=== PATIENT | male | born 1965 | race Caucasian/White ===

== ENCOUNTER → 2018-11-26 | Day surgery (SDC) | payer BC ==
[2018-11-20 16:57] LABS: ANION GAP 17.3 mmol/L (8-16); BLOOD UREA NITROGEN 21 mg/dL (7-26); BUN/CREATININE RATIO 18 (6-25); CALCIUM 10.1 mg/dL (8.4-10.2); CARBON DIOXIDE 26 mmol/L (22-29); CHLORIDE 101 mmol/L (98-107); CREATININE, SERUM 1.17 mg/dL (0.72-1.25); EST GLOMERULAR FILTRATION RATE > 60 ML/MIN (60-); GLUCOSE 69 mg/dL (74-118); POTASSIUM 4.3 mmol/L (3.5-5.1); SODIUM 140 mmol/L (136-145)
[~2018-11-26] MED LIST: ATORVASTATIN CA20 MG PO; BUPIVACAINE 0.5%/EPI 30 ML SDV INJ ONE; CLINDAMYCIN PHOS 900MG/ 50ML 50 ML IV ONE; DEXAMETHASONE SOD PHOS INJ 4 MG/ML VIAL ONE; FENTANYL CITRATE/PF 100MCG/2 ML INJ ONE; LIDOCAINE HCL 2% LOCAL INJ 5 ML SDV VIAL INJ ONE; LISINOPRIL-HCT1 EAC2 PO; METFORMIN HCL500 MG PO; MIDAZOLAM HCL 2 MG/2 ML VIAL ONE; ONDANSETRON HCL INJ 2MG/ML 2ML 2 MG/ML VIAL ONE; PROPOFOL IV EMULSION 10 MG/ML 20 ML VIAL ONE; SEVOFLURANE INHAL SOLN 250 ML PEN BTL ONE; trulicity INJ
--- OUTSIDE RECORDS SUMMARY | 2018-11-26 07:36 | XMS REPORT | Summary of Care ---
Author Author [facility] - Health Organization [facility] - Health Address Unknown Phone Unavailable Care Team Providers Care Network Manager Name Role Phone Arlene Nelson MD PCP Reason for Referral * (Routine) Referred By Contact Referred To Contact Status Reason Specialty Diagnoses / Procedures Arlene Nelson MD [address] [address] New Request Patient is Orthopedic Diagnoses Established with a Surgery Knee pain, Specific Provider unspecified chronicity, unspecified laterality P rocedures CONSULT/REFERRAL ORTHOPAEDIC SURGERY Encounter Details Care Team Description Date Type Department Arlene Nelson MD [address] [address] Knee pain, unspecified chronicity, unspecified laterality (Primary Dx) 11/12/2018 Patient Secure [facility]-[address], [address] [id number] Allergies Comments Active Allergy Reactions Severity Noted Date Penicillins Itching, 09/06/2011 Swelling documented as of this encounter (statuses as of 11/12/2018) Medications End Date Status Medication Sig Dispensed Refills Start Date Active Blood-Glucose Meter daily. Dx 1 Each 0 (GLUCOCOM BLOOD GLUCOSE) E11.9 6 KitIndications: Diabetes mellitus type II, controlled Active ONE TOUCH DELICA 33 gauge 0 Misc 6 Active aspirin 81 mg chewable Take 1 tablet 0 tabletIndications: by mouth 7 Essential hypertension, daily. benign, Type 2 diabetes mellitus without complication, without long-term current use of insulin, Hyperlipidemia, unspecified hyperlipidemia type Active ibuprofen 200 mg tablet Take 200 mg 0 by mouth every 6 (six) hours as needed. Active lisinopril-hydrochlorothi Take 1 tablet 30 tablet 11 azide 10-12.5 mg per by mouth 8 tabletIndications: daily. Essential hypertension, benign Active atorvastatin 20 mg TAKE 1 TABLET 30 tablet 11 tabletIndications: BY MOUTH 8 Hyperlipidemia, DAILY. unspecified hyperlipidemia type Active metformin ER 500 mg 24 hr TAKE 2 60 tablet tabletIndications: TABLETS BY 8 Uncontrolled type 2 MOUTH DAILY diabetes mellitus without WITH complication, without BREAKFAST. long-term current use of insulin Active blood sugar diagnostic 1 STRIP 100 Strip (ONETOUCH ULTRA TEST) DAILY. DX 8 stripIndications: E11.9 Uncontrolled type 2 diabetes mellitus without complication, without long-term current use of insulin Active dulaglutide (TRULICITY) inject 1.5 mg 4 Syringe 11 1.5 mg/0.5 mL under the 8 PnIjIndications: skin weekly. Controlled type 2 diabetes mellitus without complication, without long-term current use of insulin documented as of this encounter (statuses as of 11/12/2018) Active Problems Patient Care Coordination Note Hypertension (High Blood Pressure) Plan of Care My Hypertension Goals are the following: Strive for a normal blood pressure of less than 140/90 Cholesterol- LDL ( Bad cholesterol )- less than 130 (if I have diabetes and heart disease goal is less than 70) Total Cholesterol- less than 200 Lose weight if overweight or obese and follow the Weight Loss Care Plan Stop smoking and avoid second hand smoke My Hypertension Care Plan includes the following: Check and record blood pressure at least once a week and write results on blood pressure log Exercise at least 30 minutes a day 5 days a week. 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 If I do not have a [employer] account, I will discuss this with my healthcare team Problem Noted Date Benign neoplasm of sigmoid colon 08/09/2017 Overview: Added automatically from request for surgery [id number] Uncontrolled type 2 diabetes mellitus without complication, without 11/06/2016 long-term current use of insulin Vitamin D deficiency 10/24/2015 Diabetes mellitus, type II 02/22/2015 Environmental allergies 09/06/2011 Essential hypertension, benign Hyperlipidemia BALDEMAR (obstructive sleep apnea) documented as of this encounter (statuses as of 11/12/2018) Resolved Problems Problem Noted Date Resolved Date Breast pain in male 11/10/2015 11/06/2016 Current smoker 09/06/2011 11/06/2013 Overview: ICD10 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 documented as of this encounter (statuses as of 11/12/2018) Immunizations Name Administration Dates Next Due Influenza Virus Vaccine 01/23/2018, 02/20/2012 Influenza Virus Vaccine 03/13/2013 Nasal Influenza Virus Vaccine 03/01/2017, 03/01/2015 Quad IM 3+ YRS Influenza Virus Vaccine 01/13/2016 Quad IM Multi-dose 6+ MO Tdap 02/21/2018 documented as of this encounter Social History Date Tobacco Use Types Packs/Day Years Used 03/25/1995 - 10/18/2013 Former Smoker Cigarettes 1 18 Smokeless Tobacco: Never Used Drinks/Week oz/Week Comments Alcohol Use No Sex Assigned at Date Recorded Not on file Industry Job Start Date Occupation Not on file Not on file Not on file Travel End Travel History Travel Start No recent travel history available. documented as of this encounter Last Filed Vital Signs Not on filedocumented in this encounter Plan of Treatment Care Team Description Date Type Specialty Arlene Nelson MD [address] [id number] 01/02/2019 Office Visit Family Medicine Health Maintenance Due Date Last Done Comments PNEUMOCOCCAL 0-64 YEARS 1971 COMBINED SERIES (1 of 1 - PPSV23) Zoster Recombinant 2013 Vaccine (SHINGRIX) (1 of 2) EYE EXAM 07/05/2018 07/05/2017, 03/22/2017, 03/06/2016, Additional history exists FOOT EXAM 09/27/2018 09/27/2017, 11/06/2016, 11/06/2016, Additional history exists URINE MICROALBUMIN 09/27/2018 09/27/2017, 11/06/2016, 10/28/2015 INFLUENZA VACCINE (#1) 2018 01/23/2018, 03/01/2017, 01/13/2016, Additional history exists HgA1C 12/27/2018 06/27/2018, 02/21/2018, 09/27/2017, Additional history exists CREATININE (SERUM) 06/28/2019 06/27/2018, 07/05/2017, 03/01/2017, Additional history exists LDL-C 06/28/2019 06/27/2018, 07/05/2017, 06/23/2016, Additional history exists COLONOSCOPY 12/24/2020 12/24/2017, 12/24/2017, 08/08/2017 DTaP,Tdap,and Td Vaccines 02/22/2028 02/21/2018 (2 - Td) HEPATITIS C (HCV) SCREEN Completed 06/28/2016 LUNG CANCER SCREEN: Discontinued Recommended for age 55-80 with 30 + pack year history documented as of this encounter Results Not on filedocumented in this encounter Visit Diagnoses Diagnosis Knee pain, unspecified chronicity, unspecified laterality - Primary documented in this encounter Insurance Type Payer Benefit Subscriber ID Effective Phone Address Plan / Dates Group PPO/POS [employer] [place] [employer] OF [id number] 2017- [phone] [address] [place] - Present [id number] OUT OF [facility] [id number] documented as of this encounter
--- OUTSIDE RECORDS SUMMARY | 2018-11-26 07:36 | XMS REPORT ---
Author Author [facility] Address Unknown Phone Unavailable Care Team Providers Care Wood Patternmaker Name Role Phone Unavailable Unavailable Payers Payer Name Policy Type Policy Number Effective Date Expiration Date Problems This patient has no known problems. Allergies, Adverse Reactions, Alerts This patient has no known allergies or adverse reactions. Medications This patient has no known medications.
[2018-11-26 11:18] VITALS: BP 105/66
--- NOTE | 2018-11-27 17:47 | Operative Report ---
DATE OF PROCEDURE: 11/26/2018 SURGEON: Raymundo Em MD PREOPERATIVE DIAGNOSES: 1. Right knee medial meniscus tear. 2. Right knee degenerative joint disease of the knee. POSTOPERATIVE DIAGNOSES: 1. Right knee pain degenerative joint disease of the knee. 2. Right knee intra-articular loose bodies. 3. Right knee symptomatic medial shelf plica. OPERATIONS AND PROCEDURES PERFORMED: The patient underwent a right knee examination under anesthesia, right knee arthroscopy, right knee removal of intra-articular loose bodies, right knee resection of a medial shelf plica, right knee chondroplasty of the patella, the trochlea, the medial femoral condyle, the medial tibial plateau, the lateral femoral condyle, and lateral tibial plateau. HAY CHOPPER: There was no dietary assistant. ANESTHESIA: General endotracheal intubation anesthesia. IV FLUIDS: Per anesthesia record. BRIEF DESCRIPTION OF THE PATIENT'S OPERATIVE PROCEDURE: Mr. Amin was taken to the operating room and placed in the supine position on the operating table. Following induction of general anesthesia as well as endotracheal intubation, the patient's right lower extremity was examined under anesthesia. He was found to have a mild effusion in the right knee joint, but otherwise ligamentously stable knee. The patient's lower extremity was prepped and draped in standard surgical fashion. A two-port technique used to provide this patient's arthroscopic evaluation of the knee joint. Examination of the suprapatellar pouch and medial and lateral gutters found no evidence of loose bodies. There was evidence of chondromalacia of the patellar and trochlear surfaces. The scope was advanced to the medial compartment and examination of the medial compartment demonstrated multiple intra-articular loose bodies. Shaver was placed in the knee joint and the loose bodies were removed. Examination of the remaining portion of the compartment demonstrated no evidence of a medial meniscus tear. There was, however, chondromalacia of the patellar and trochlear surfaces. A chondroplasty of each of the surfaces was performed at this time. The scope was advanced to the intercondylar notch and the anterior cruciate ligament was identified and found to be intact. The scope was advanced to the lateral compartment and chondromalacia of the articulating surfaces were encountered. A chondroplasty of the lateral femoral condyle and lateral tibial plateau performed at this time. Scope was advanced in suprapatellar pouch and chondroplasties of the patellar and trochlear were performed. The patient was also found to have a large inflamed medial shelf plica interdigitating between the patella and trochlea. This plica was resected at this time. The knee was deflated of sterile normal saline. Each of the portal sites were closed using 4-0 nylon suture. Portal sites as well as the knee itself were then injected with 0.5% Marcaine with epinephrine. Sterile dressings were applied and the patient was then awakened and taken to the postanesthesia care unit in stable condition. MD ARAVIND Inman/SHERRY /[id number]
== END | disposition home or self-care (01) ==
LOC: OR 07:28
PROVIDERS: ATTEND Specialist
DX: M67.51 Plica syndrome, right knee (principal); M17.11 Unilateral primary osteoarthritis, right knee; M22.41 Chondromalacia patellae, right knee; M23.41 Loose body in knee, right knee; E11.9 Type 2 diabetes mellitus without complications; E78.00 Pure hypercholesterolemia, unspecified; X58.XXXA Exposure to other specified factors, initial encounter; Z88.0 Allergy status to penicillin; Z01.810 Encounter for preprocedural cardiovascular examination; Z01.812 Encounter for preprocedural laboratory examination; Z79.84 Long term (current) use of oral hypoglycemic drugs; Z68.42 Body mass index [BMI] 45.0-49.9, adult; Z87.891 Personal history of nicotine dependence
CPT/HCPCS: 29875; 36415 ×2; 80048; 82948; 93005; J1100; J2001; J2250; J2405; J2704; J3010